=== PATIENT | male | born 1950 | race Caucasian/White ===

== ENCOUNTER 2017-05-07 11:01 | Outpatient (CLI) | payer OTHER ==
[~2017-05-07 11:01] MED LIST: ASPIRIN EC LOW81 MG PO; ATENOLOL50 MG PO; ATORVASTATIN CA40 MG PO; DIGOXIN0.125 MG PO; DILAUDID4 MG PO; FERROUS SULFAT325 M1 PO; LISINOPRIL10 MG PO; METFORMIN HCL500 MG PO; NORTRIPTYLINE H25 MG PO; NOVOLOG100 UNITS/; SULFAMETHOXAZOL1 TAB PO; VITAMIN B121000 CR PO; VITAMIN C500 M1 PO; VITAMIN D-31000 UNIT PO; VITAMIN E200 UNIT PO; WARFARIN SODIUM5 MG PO; [UNRECOGNIZED DRUG - OTHER] SC; [UNRECOGNIZED DRUG - REMARK]
--- NOTE | 2017-05-07 11:49 | DIAGNOSTIC IMAGING REPORT ---
PROCEDURE: XR FOOT 3 VIEWS - RIGHT INDICATION: HISTORY OF POST BYPASS GRAFTS BILAT TECHNIQUE: Three views. COMPARISON: None. FINDINGS: Neuropathic changes of the midfoot with pes planus. No fracture or evidence of osteomyelitis. Absent first distal phalanx with chronic erosive changes of the first proximal phalanx distally. Surgical clips are present. Extensive atherosclerosis. There is soft tissue swelling of the dorsum and plantar aspect of the foot. IMPRESSION: 1. 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 Erosive changes of the first digit 3. Extensive atherosclerosis 4. Postsurgical changes
== END 2017-05-07 23:00 ==
LOC: XR SRH 11:01
DX: E11.621 Type 2 diabetes mellitus with foot ulcer (principal); M21.41 Flat foot [pes planus] (acquired), right foot; M79.9 Soft tissue disorder, unspecified; M89.9 Disorder of bone, unspecified; I70.90 Unspecified atherosclerosis

== ENCOUNTER 2017-05-09 16:46 | Inpatient (IN) | payer OTHER ==
[~2017-05-09] VITALS: Ht 180.3 cm; Wt 115.7 kg
--- NOTE | 2017-05-09 17:53 | DIAGNOSTIC IMAGING REPORT ---
PROCEDURE: XR FOOT 3 VIEWS - RIGHT INDICATION: PAIN TECHNIQUE: Three views. COMPARISON: Right foot films 05/07/2017 FINDINGS: Neuropathic changes of the midfoot with pes planus. No fracture or evidence of osteomyelitis. Absent first distal phalanx with chronic erosive changes of the first proximal phalanx distally. Surgical clips are present. Extensive atherosclerosis. There is soft tissue swelling of the dorsum and plantar aspect of the foot. IMPRESSION: 1. 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 Erosive changes of the first digit 3. Extensive atherosclerosis 4. Postsurgical changes
--- NOTE | 2017-05-09 18:38 | DIAGNOSTIC IMAGING REPORT ---
PROCEDURE: XR CHEST 1 VIEW INDICATION: COUGH TECHNIQUE: Single view chest. 1804 hours COMPARISON: 03/16/2015 and 07/08/2014 FINDINGS: Heart size within normal limits. No significant central vascular congestion. Minor hazy widening of the superior mediastinum bilaterally, potentially vascular. The lungs are clear. No effusion or pneumothorax. Intact osseous structures with degenerative thoracic spine spurring. IMPRESSION: 1. Hazy superior mediastinal tissue widening of the mediastinal contour, possibly adipose deposition, venous vascular prominence, less likely adenopathy in etiology. Two views of the chest is recommended. 2. Discussed with Dr. Roman in the emergency room.
--- NOTE | 2017-05-09 18:43 | ED NURSING NOTES ---
Clinical Report - [facility] [address] [place] [address] 05/09/2017 16:47 [id number] Triage time 16:56. Acuity: LEVEL 3. Chief Complaint: FEVER. SEPSIS SCREEN: Sepsis Screen: positive. Infection suspected/documented. Temperature greater than 38.3 degrees C (101 degrees F), heart rate greater than 90 and respiratory rate greater than 20. RAFAL COMA SCORE: Rafal Coma Scale: 15- eyes open spontaneously (4); best verbal response- oriented x 4 (5); best motor response- obeys commands (6). --17:10 Marilee Schreiber R.N. 16:56 05/09/17. BP: 153/69. HR: 174. RR: 24. O2 saturation: 95%. Temp: 102.8 F. Pain level now: 08/10. --17:10 Marilee Schreiber R.N. Weight: 113.3 kg. Height/Length: 70 inches. BMI: 35.8. --17:08 Marilee Schreiber R.N. Medications HumuLIN 70/30 Subcutaneous, bid (75 units AM 55 units PM). --17:55 Marilee Schreiber R.N. Betamethasone Dipropionate External (Cream 0.05 %), bid. --17:55 Marilee Schreiber R.N. Triamcinolone Acetonide External (Cream 0.1 %), 2x a day. --17:56 Marilee Schreiber R.N. Meloxicam Oral (15 mg daily; new RX and he hasn't taken any yet). --17:57 Marilee Schreiber R.N. MetFORMIN HCl Oral (Tablet 1000 mg), 2x a day. --17:58 Marilee Schreiber R.N. Atorvastatin Calcium Oral dose unknown, daily. --17:58 Marilee Schreiber R.N. Tamsulosin HCl Oral 0.4 mg, daily. --17:59 Marilee Schreiber R.N. Gabapentin Oral 200 mg, 2x a day. --18:00 Marilee Schreiber R.N. Digoxin Oral 0.125 mg, daily. --18:00 Marilee Schreiber R.N. Atenolol Oral 25 mg, daily. --18:00 Marilee Schreiber R.N. Coumadin Oral (7.5 mg - M,W,F 5 mg - FAIR,TU,TH,SA). --18:01 Marilee Schreiber R.N. ASA Oral 81 mg, daily. --18:03 Marilee Schreiber R.N. Vitamins/Minerals Oral, 2x a day. --18:03 Marilee Schreiber R.N. Vitamin c Oral. Vitamin D Oral. Vitamin E Complex Oral. --18:07 Marilee Schreiber R.N. Iron Oral. --18:08 Marilee Schreiber R.N. Allergies No Known Drug Allergy. --17: Marilee Schreiber R.N. History Arrived by private vehicle. Historian: patient. Accompanied by family. Primary physician (Irasema). This started yesterday. ( had wound deep debridement on right foot, in doctor's office on Friday (Shreyas)). 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 SOCIAL HX: Former smoker. LEARNING NEEDS ASSESSMENT: The learning needs assessment revealed no barriers. FALL RISK ASSESSMENT: Fall risk assessment completed. Risk factors identified include patient impairment of mobility. Fall interventions initiated. Patient placed on stretcher. Side rails up x2. Brakes on Bed in low position. FUNCTIONAL ASSESSMENT: Functional assessment performed: requires assistance with the activities of daily living; mobility impairment present- this mobility impairment is an ongoing problem. uses a scooter. --17:10 Marilee Schreiber R.N. PROBLEMS: Hypertension. Neuropathy. A fib. Diabetes Mellitus. --17: Marilee Schreiber R.N. 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 MRSA Infection. Osteomyelitis. --17: Marilee Schreiber R.N. ADDITIONAL SURGERIES: Lt little toe amputation. Rt great toe amputation. --17:02 Marilee Schreiber R.N. Broken arm surgery. Bypass on lt leg. Cataract Surgery. --17:07 Marilee Schreiber R.N. The following entry was struck by Marilee Schreiber R.N., 17:07 <<STRICKEN ENTRY-- Broken arm surgery. --18:26 Marilee Schreiber R.N. --END STRIKE>> The following entry was struck by Marilee Schreiber R.N., 17:07 <<STRICKEN ENTRY-- Bypass on lt leg. --18:27 Marilee Schreiber R.N. --END STRIKE>>. Assessment GENERAL / NEURO / PSYCH: The patient is awake and alert, is oriented and cooperative and appears uncomfortable. He has good eye contact. RESPIRATORY: Respirations not labored. CVS: Cardiac rhythm: (tachycardia). --17:10 Marilee Schreiber R.N. Interventions ID band on patient. To treatment room. --17:10 Marilee Schreiber R.N. PHYSICAL ASSESSMENT 17:11 05/09/17. To room via wheelchair. Patient gowned. GENERAL / NEURO / PSYCH: The patient is awake and alert, appears uncomfortable and is oriented and cooperative. He appears uncomfortable and has good eye contact. RESPIRATORY: Respirations not labored. Cough (started yesterday). CVS: Cardiac rhythm: (tachycardic). SKIN: Skin is dry. Hot skin. --17:11 Marilee Schreiber R.N. NURSING PROGRESS NOTES 17:12 05/09/17. environmental monitoring technician, pulse oximeter and NIBP monitor placed on patient. Patient gowned. Head of bed elevated. Call light placed in reach. Side rails up x 2. Bed placed in lowest position. Brakes of bed on. --17:12 Marilee Schreiber R.N. 17:14 05/09/17. The patient is calm and resting quietly. GENERAL / NEURO / PSYCH: Alert. Oriented X 4. RESPIRATORY: No respiratory distress. SKIN: Skin is dry. --17:14 Marilee Schreiber R.N. 17:12 05/09/17. BP: 122/68. HR: 174. RR: 24. O2 saturation: 94% on room air. --17:14 Marilee Schreiber R.N. 17:15 05/09/2017 Site #1 started via IV in the left forearm with an 18g angiocath, with aseptic technique and good blood return; one attempt. Blood drawn: rainbow set. Labeled in the presence of the patient and sent to the lab. Saline lock flushed with 10 mL saline (by Erika FIGUEROA). --17:15 Marilee Schreiber R.N. 17:42 05/09/2017 Tylenol (Acetaminophen) PO Tablets 1000 mg given. Allergies verified and confirmed 5 rights. --17:42 Marilee Schreiber R.N. 17:44 05/09/2017 Started bag #1 1000 mL IV Fluids IV NS (Saline); bolus of 500 mL over 30 minute(s) then at 10 mL/hr over 4 minute(s) via site #1 via IV pump. (bolus infusing @ 999 ml/hr). --17:44 Marilee Schreiber R.N. 17:44 05/09/2017 Metoprolol (Metoprolol Tartrate) IVP 5 mg given over 5 minute(s) via site #1. Allergies verified and confirmed 5 rights. IV patency established. IV site checked: no pain, redness, or swelling. IV flushed thoroughly pre- and post-medication administration. IVP given by RN. --17:44 Marilee Schreiber R.N. 17:29. Point of care testing: performed by nurse. Glucose: 261. --17:47 Marilee Schreiber R.N. 18:10 05/09/17. BP: 120/75. HR: 169. RR: 25. O2 saturation: 93% on room air. --18:11 Marilee Schreiber R.N. 18:11 05/09/17. Reassessment after fluids administered and medication administered. He is calm and resting quietly. Overall patient status is the same- he states feels the same. GENERAL / NEURO / PSYCH: Alert. Oriented X 4. RESPIRATORY: No respiratory distress. SKIN: Skin is dry. --18:11 Marilee Schreiber R.N. 18:12 05/09/17. Temp: 101.4 F (oral). --18:12 Marilee Schreiber R.N. 18:20 05/09/2017 Started 2 gm of Vancomycin IVPB in bag #1 500 mL; at 270 mL/hr over 2 hour(s) via site #1 via IV pump. Allergies verified and confirmed 5 rights. IV patency established. IV site checked: no pain, redness, or swelling. IV flushed thoroughly pre- and post-medication administration. --18:21 Marilee Schreiber R.N. 19:24 05/09/2017 Site #2 started via IV in the right hand with an 20g angiocath, with aseptic technique and good blood return; one attempt. Saline lock flushed with 10 mL saline. --19:24 Marilee Schreiber R.N. Cardiac rhythm: sinus tachycardia. Reassessment after fluids administered. He is calm. Overall patient status is improved- he states feels better. GENERAL / NEURO / PSYCH: Alert. Oriented X 4. RESPIRATORY: No respiratory distress. Breath sounds normal. SKIN: Skin is warm. --19:46 Carlyle Solorio R.N. 19:41 05/09/17. BP: 105/50. HR: 157. RR: 24. O2 saturation: 95% on nasal cannula at 2 liters/minute. O2 started via nasal cannula at 2 liters/minute. Temp: 98.1 F. Pain level now: 03/10. --19:46 Carlyle Solorio R.N. 19:54 05/09/17. BP: 103/43. HR: 174. RR: 24. O2 saturation: 99% on nasal cannula at 2 liters/minute. O2 started via nasal cannula at 2 liters/minute. --19:59 Carlyle Solorio R.N. The patient is calm and resting quietly. ( Dr. Roman made aware that pts systolic BP is in low 100's with MAP of 60. clarified order of Diltiazem bolus and infusion prior to starting. Ordered to start with Diltiazem 5mg/hr infusion and hold off Diltiazem bolus.). GENERAL / NEURO / PSYCH: Alert. Oriented X 4. RESPIRATORY: No respiratory distress. --19:59 Carlyle Solorio R.N. 20:00 05/09/2017 Started 5 mg of Diltiazem Drip IV in bag #1 125 mL; at 5 mg/hr via site #2 via IV pump. Allergies verified and confirmed 5 rights. IV patency established. IV site checked: no pain, redness, or swelling. IV flushed thoroughly pre- and post-medication administration. --20:01 Carlyle Solorio R.N. Cardiac rhythm: sinus tachycardia. Reassessment after medication administered. He is calm and resting quietly. Overall patient status is improved- he states feels better. ( Patient tolerating the Diltiazem 5mg/hr infusion while maintaining MAP >50, patient has no CP or SOB.). GENERAL / NEURO / PSYCH: Alert. Oriented X 4. RESPIRATORY: No respiratory distress. Breath sounds normal. SKIN: Skin is warm and dry. --20:33 Carlyle Solorio R.N. 20:30 05/09/17. BP: 97/42. HR: 136. RR: 25. O2 saturation: 98% on nasal cannula at 2 liters/minute. Temp: 100.1 F (oral). --20:33 Carlyle Solorio R.N. ( Applied non-adherent dressing on the wound on patient's right foot.). --20:42 Carlyle Solorio R.N. ( Phone report given to Pari FIGUEROA ([facility]) for transfer of care.). --20:51 Carlyle Solorio R.N. DISPOSITION / DISCHARGE Cardiac rhythm: sinus tachycardia. Condition at departure: stable. Admitted to the Critical Care Unit. Report was given to a nurse via a phone call. Report included patient's care, treatment, medications, reviewed medication reconcilliation, and condition (including any recent changes or anticipated changes). All questions were answered. Report was acknowledged and care was transferred. (Pari FIGUEROA). Patient's personal items include: shirt, undergarments, pajamas and shoes; items were placed in belongings bag, given to the spouse and transported with the patient. --21:00 Carlyle Solorio R.N. 20:58 05/09/17. BP: 104/75. HR: 138. RR: 20. O2 saturation: 98% on nasal cannula at 2 liters/minute. Temp: 100.1 F (oral). Pain level now: 03/10. --21:00 Carlyle Solorio R.N. Departure time: 21:09. --21:09 Carlyle Solorio R.N. Locked/Released at 05/09/2017 21:09 by Carlyle Solorio R.N.
--- NOTE | 2017-05-09 18:43 | ED ORDER SUMMARY ---
..... Patient: JEWEL DUNCAN OrderSheet [facility] VisitID: [id number] [address] [place] [address] 66y, M Registration Date/Time: 05/09/2017 ORDER SHEET Weight: 113.3 kg Allergies: No Known Drug Allergy GENERAL ORDERS: Blood Culture (No) (N/A) Urgent (17:06 05/09/2017 EKoroleva P.A.-C) (Ack 17:14 KHoerner) (17:15 Lv R.N.) CBC w Diff Urgent (17:07 05/09/2017 EKoroleva P.A.-C) (Ack 17:14 KHoerner) (17:15 Lv R.N.) CMP Urgent (17:05/09/2017 EKoroleva P.A.-C) (Ack 17:14 KHoerner) (17:15 Lv R.N.) PCT (Procalcitonin) Urgent (17:07 05/09/2017 EKoroleva P.A.-C) (Ack 17:14 KHoerner) (17:15 Lv R.N.) Lactate, Serum Urgent (17:07 05/09/2017 EKoroleva P.A.-C) (Ack 17:14 KHoerner) (17:15 Lv R.N.) PT with INR Urgent (17:07 05/09/2017 EKoroleva P.A.-C) (Ack 17:14 KHoerner) (17:15 Lv R.N.) PTT Urgent (17:07 05/09/2017 EKoroleva P.A.-C) (Ack 17:14 KHoerner) (17:15 Lv R.N.) POC Glucose (17:08 05/09/2017 EKoroleva P.A.-C) (17:45 Lv R.N.) Foot 3V Right Urgent (17:17 05/09/2017 EKoroleva P.A.-C) (Ack 17:40 KHoerner) (17:45 Lv R.N.) Brain Surgeon (Continuous) (17:31 05/09/2017 EKoroleva P.A.-C) (17:45 Lv R.N.) Culture, Wound Surface (Foot) (foot infection ) Urgent (17:38 05/09/2017 [facility]) (Ack 17:41 KHoerner) (17:45 Lv R.N.) Culture, Wound Deep (Foot) (foot infection ) Urgent (17:39 05/09/2017 [facility]) (Ack 17:41 KHoerner) (18:19 Lv R.N.) Chest 1V Urgent (17:54 05/09/2017 [facility]) (Ack 18:06 KHoerner) (18:40 KHoerner) Chest 2V Urgent (18:37 05/09/2017 [facility]) (Ack 18:38 KHoerner) (18:40 KHoerner) MEDICATION ORDERS: Tylenol PO 1,000 mg (NOW) (17:06 05/09/2017 EKoroleva P.A.-C) (Ack 17:15 Lv R.N.) (17:42 Lv R.N.) IV FLUIDS: IV NS : initial bolus 500 mL (1000 mL/hr), then 10 mL/hr for X1 (NOW); Vincent (17:06 05/09/2017 EKoroleva P.A.-C) (Ack 17:15 Lv R.N.) (17:44 Lv R.N.) IV Saline Lock (17:07 05/09/2017 EKoroleva P.A.-C) (Ack 17:15 Lv R.N.) (17:41 Lv R.N.) Metoprolol IV 5 mg (HIGH ALERT MEDICATION, NOW) (17:08 05/09/2017 EKoroleva P.A.-C) (Ack 17:15 Lv R.N.) (17:44 Lv R.N.) Vancomycin IV 2 gm/500 mL (NOW) (17:40 05/09/2017 [facility]) (Ack 17:45 Lv R.N.) (18:21 Lv R.N.) Diltiazem Drip IV : initial bolus 10 mg, then 5 mg/hr (NOW, TITRATE) (18:23 05/09/2017 Jorg[facility] MENDEZ) (Ack 19:17 Lv Monet) (20:01 Ela Monet) ORDER SHEET NOTES: [Electronically signed by Carlyle Solorio R.N. (21:05/09/2017)] [Electronically signed by Jonny Roman DO (21:16 05/09/2017)] [Electronically locked/signed by Carlyle Solorio R.N. (21:05/09/2017)]
--- NOTE | 2017-05-09 18:43 | ED CLINICAL REPORT ---
Clinical Report - Physicians/Mid Levels [facility] [address] [place] [address] 05/09/2017 16:47 Patient: JEWEL DUNCAN Time Seen: 17:12 May 09 2017. Arrived- By private vehicle. Historian- patient. HISTORY OF PRESENT ILLNESS Chief Complaint: SKIN RASH and (FEVER). This started yesterday and is still present. It was gradual in onset and has been waxing/waning. It is described as painful. It has been located on the right lower extremity. No rash to face. A possible cause has been identified. (Patient reports history of osteomyelitis, history of MRSA, with debridement of the right foot [address] Pritchett, on 07 May). Similar symptoms previously: Recent medical care: The patient was seen recently in a clinic. REVIEW OF SYSTEMS The patient has had fever. No chills, sore throat, hoarseness, headache or eye irritation. No chest pain, abdominal pain, nausea, diarrhea or difficulty with urination. No vomiting. The patient has had a moderate nonproductive cough. No blood tinged sputum or frankly bloody sputum. It has been similar to previous symptoms. All systems otherwise negative, except as recorded above. PAST HISTORY PCP: [facility]ry: Dr Pritchett PROBLEMS: Hypertension. Neuropathy. A fib. Diabetes Mellitus. 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 MRSA Infection. Osteomyelitis. ADDITIONAL SURGERIES: Lt little toe amputation. Rt great toe amputation. --17:02 Marilee Schreiber R.N. Broken arm surgery. Bypass on lt leg. Cataract Surgery. Chronic atrial fibrillation. Medications: Iron Oral. Vitamin c Oral. Vitamin D Oral. Vitamin E Complex Oral. Vitamins/Minerals Oral, 2x a day. ASA Oral 81 mg, daily. Coumadin Oral (7.5 mg - M,W,F 5 mg - FAIR,,,SA). Atenolol Oral 25 mg, daily. Digoxin Oral 0.125 mg, daily. Gabapentin Oral 200 mg, 2x a day. Tamsulosin HCl Oral 0.4 mg, daily. Atorvastatin Calcium Oral dose unknown, daily. MetFORMIN HCl Oral (Tablet 1000 mg), 2x a day. Meloxicam Oral (15 mg daily; new RX and he hasn't taken any yet). Triamcinolone Acetonide External (Cream 0.1 %), 2x a day. Betamethasone Dipropionate External (Cream 0.05 %), bid. HumuLIN 70/30 Subcutaneous, bid (75 units AM 55 units PM). Allergies: No Known Drug Allergy. SOCIAL HISTORY Former smoker. No alcohol use or drug use. ADDITIONAL NOTES The nursing notes have been reviewed. PHYSICAL EXAM Vital Signs: 05/09/2017 16:56 BP: 153/69. HR: 174. RR: 24. O2 saturation: 95%. Temp: 102.8 F. Pain level now: 08/10. Appearance: Alert. Oriented X3. Patient in mild distress. Eyes: Conjunctivae and eyelids normal. ENT: Nose normal. Pharynx normal. Neck: Neck supple. CVS: Tachycardia. Abnormal rhythm, which is irregularly irregular. Respiratory: No respiratory distress. Breath sounds normal. Abdomen: Nontender. No organomegaly. Skin: Skin warm and dry. Cellulitis. Extremities: Right foot: moderate erythema, tenderness and swelling located in the proximal and distal aspect of the mid foot. (surgical site with packing in place - when removed there is moderate pus discharge; there is a large vesicle on the distal foot at the MTP crease area). Neuro: Oriented X 3. No motor deficit. Sensory deficit present. (foot). Altered sensation to light touch on the right leg. LABS, X-RAYS, AND EKG Rt Foot X-ray: (IMPRESSION: 1. 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 Erosive changes of the first digit 3. Extensive atherosclerosis 4. Postsurgical changes). Views: AP, lateral and oblique. Technique: good. The X-rays were interpreted contemporaneously by me. Laboratory Tests: CBC w Diff: (ASAD: 05/09/2017 17:15) ( MsgRcvd 05/09/2017 17:47) Final results Test Result Flag Units (Reference) WHITE BLOOD COUNT 14.6 H K/uL (4.5-11.5) RED BLOOD COUNT 3.88 L M/uL (4.50-5.90) HEMOGLOBIN 11.2 L gm/dL (13.5-17.5) HEMATOCRIT 32.9 L % (41.0-53.0) MEAN CELL VOLUME 85 fL (80-100) MEAN CORPUSCULAR HGB 29 pg (26-34) MEAN CORPUSCULAR HGB CONC 34 g/dL (31-37) RED CELL DISTRIBUTION WIDTH 14.3 % (11.6-14.8) PLATELET COUNT 238 K/uL (150-400) NEUTROPHIL % 79.7 H % (50-75) LYMPH % 7.4 L % (25-40) MONO % 12.9 % (3-14) EOSINOPHIL % 0 % (0-4) BASOPHIL % 0 % (0-2) PT with INR: (ASAD: 05/09/2017 17:15) ( [facility] 05/09/2017 17:53) Final results Test Result Flag Units (Reference) INR 2.5 H (0.8-1.2) Low Intensity Therapy: INR 1.5-2.0 PT range 18.5-23.1Mod.Intensity Therapy: INR 2.0-3.0 PT range 23.1-31.5High Intensity Therapy: INR 2.5-3.5 PT range 27.4-35.5High Intensity Therapy 2: INR 3.0-4.0 PT range 31.5-39.3 APTT 67 H SECONDS (24-34) Troponin-I: (ASAD: 05/09/2017 19:35) ( [facility] 05/09/2017 20:19) Final results Test Result Flag Units (Reference) TROPONIN I <0.05 ng/mL (0.00-1.5) TROPONIN REFERENCE RANGE:<0.1 NEGATIVE0.1-1.5 INDETERMINANT>1.5 POSITIVE Lactate, Serum: (ASAD: 05/09/2017 17:15) ( [facility] 05/09/2017 18:01) Final results Test Result Flag Units (Reference) LACTIC ACID 1.7 mmol/L (0.4-2.0) [id number]: (ASAD: 05/09/2017 17:15) ( MsgRcvd 05/09/2017 18:19) Final results Test Result Flag Units (Reference) PROCALCITONIN <0.5 ng/mL (0-0.5) PCT Concentration: Interpretation : Risk/option for action PCT <=0.5 ng/mL : Systemic : Low risk forinfection(sepsis): progression to severeis not likely. : systemic infection.Local bacterial : CAUTION-PCT levelsinfection is : below 0.5 ng/mL do notpossible. : exclude an infection,because localizedinfections (withoutsystemic signs) may beassociated with suchlow levels. If PCT ismeasured very earlyafter a bacterialchallenge (usually <6hours), these valuesmay still be low. Inthis case PCT shouldbe re-assessed 6-24hours later. PCT >0.5 and : Systemic infection: Moderate risk for<= 2 ng/mL : (sepsis) is : progression to severepossible, but : systemic infection.other conditions : The patient should beare known to : closely monitoredelevate PCT. : both clinically andby re-assessing PCTwithin 6-24 hours. PCT > 2 ng/mL : Systemic infection: High risk for(sepsis) is likely: progression to severeunless other : systemic infection.causes are known. : PCT >= 10 ng/mL : Important systemic: High likelihood ofinflammatory : severe sepsis orresponse, almost : septic shock.exclusively due to:severe bacterial :sepsis or septic :shock. : CMP: (ASAD: 05/09/2017 17:15) ( [facility] [place] 05/09/2017 18:07) Final results Test Result Flag Units (Reference) GLUCOSE 288 H mg/dL (70-110) BUN 20 H mg/dL (7-18) CREATININE 1.3 mg/dL (0.6-1.3) Estimated GFR 58.35 mL/min Estimated GFR- >60 mL/min Note: Persistent reduction over 3 months in eGFR<60 mL/min/1.73 m2 defines CKD. Patients with eGFR values>=60 mL/min/1.73 m2 may also have CKD if evidence ofpersistent proteinuria. Additional information may be foundat www.kidney.org. SODIUM 137 mmol/L (136-145) POTASSIUM 4.4 mmol/L (3.5-5.1) CHLORIDE 101 mmol/L (98-107) CARBON DIOXIDE 26 mmol/L (21-32) CALCIUM 9.4 mg/dL (8.5-10.1) TOTAL PROTEIN 7.8 g/dL (6.4-8.2) ALBUMIN 2.7 L g/dL (3.3-5.0) BILIRUBIN, TOTAL 1.1 H mg/dL (0.0-1.0) ALKALINE PHOSPHATASE 86 U/L (46-116) AST (SGOT) 15 U/L (15-37) ALT (SGPT) 21 U/L (12-78) Culture, Wound Deep: (ASAD: 05/09/2017 17:35) ( [facility] [place]/09[place] 21:03) IP SPECIMEN DESCRIPTION: FOOT INFECTION Test Result Flag Units (Reference) GRAM STAIN, WOUND, DEEP EPITHELIAL CELLS: RARE GRAM POSITIVE COCCI: MANY WHITE BLOOD CELLS: MANY POLY . Microbiology: Wound culture ordered. (from 05/07/2017: +staph aureus - sensitivities pending). Pulse Oximetry: 05/09/2017 16:56 O2 saturation: 95%. (FIO2 - room air). Interpretation: normal. PROGRESS AND PROCEDURES Course of Care: Normal Saline 1 liter IVPB given. Tylenol 1000 mg PO given. Vancomycin 2 grams IVPB given. Zofran 4 mg IVP given. Metoprolol 5 mg IVP given. Diltiazem IV drip given. Pt initially seen by JIGAR Lambert. VS noted to be significantly abnormal and care transferred myself 05/09/2017 18:12 Temp: 101.4 F. 05/09/2017 18:10 BP: 120/75. HR: 169. RR: 25. O2 saturation: 93%. Critical care performed (70 minutes). Time is exclusive of separately billable procedures. Time includes: direct patient care, patient reassessment, coordination of patient care, interpretation of data (laboratory data, pulse oximetry and chest xrays), review of patient's medical records, medical consultation, family consultation regarding treatment decisions and documentation of patient care. Procedures excluded from critical care time: electrocardiography. Discussed case with health care provider (Shreyas call placed 18:03 call returned 18:04). Reviewed test results. Agreed upon treatment plan. Refers case to other health care provider. Discussed case with hospitalist, (Ruddy). Reviewed test results. Agreed upon treatment plan. Health care provider will see patient in ED. Patient/family counseled. Old ED and inpatient records reviewed. Transition orders written. Disposition: Admitted to the Critical Care Unit. Condition: guarded. CLINICAL IMPRESSION Chronic atrial fibrillation. The patient has one or more high risk factors and/or two or more moderate risk factors for thromboembolism. The patient is prescribed warfarin or another FDA approved anticoagulant. Cellulitis of the right foot. Abscess to the right foot (with recent incision and drainage). (Electronically signed by Jonny Roman DO 05/09/2017 21:16)
--- NOTE | 2017-05-09 18:43 | ED ORDER SUMMARY ---
..... Patient: JEWEL DUNCAN OrderSheet [facility] VisitID: [id number] [address] [place] [address] 66y, M Registration Date/Time: 05/09/2017 ORDER SHEET Weight: 113.3 kg Allergies: No Known Drug Allergy GENERAL ORDERS: Blood Culture (No) (N/A) Urgent (17:06 05/09/2017 EKoroleva P.A.-C) (Ack 17:14 KHoerner) (17:15 Lv R.N.) CBC w Diff Urgent (17:07 05/09/2017 EKoroleva P.A.-C) (Ack 17:14 KHoerner) (17:15 Lv R.N.) CMP Urgent (17:05/09/2017 EKoroleva P.A.-C) (Ack 17:14 KHoerner) (17:15 Lv R.N.) PCT (Procalcitonin) Urgent (17:07 05/09/2017 EKoroleva P.A.-C) (Ack 17:14 KHoerner) (17:15 Lv R.N.) Lactate, Serum Urgent (17:07 05/09/2017 EKoroleva P.A.-C) (Ack 17:14 KHoerner) (17:15 Lv R.N.) PT with INR Urgent (17:07 05/09/2017 EKoroleva P.A.-C) (Ack 17:14 KHoerner) (17:15 Lv R.N.) PTT Urgent (17:07 05/09/2017 EKoroleva P.A.-C) (Ack 17:14 KHoerner) (17:15 Lv R.N.) POC Glucose (17:08 05/09/2017 EKoroleva P.A.-C) (17:45 Lv R.N.) Foot 3V Right Urgent (17:17 05/09/2017 EKoroleva P.A.-C) (Ack 17:40 KHoerner) (17:45 Lv R.N.) Examination Proctor (Continuous) (17:31 05/09/2017 EKoroleva P.A.-C) (17:45 Lv R.N.) Culture, Wound Surface (Foot) (foot infection ) Urgent (17:38 05/09/2017 [facility]) (Ack 17:41 KHoerner) (17:45 Lv R.N.) Culture, Wound Deep (Foot) (foot infection ) Urgent (17:39 05/09/2017 [facility]) (Ack 17:41 KHoerner) (18:19 Lv R.N.) Chest 1V Urgent (17:54 05/09/2017 [facility]) (Ack 18:06 KHoerner) (18:40 KHoerner) Chest 2V Urgent (18:37 05/09/2017 [facility]) (Ack 18:38 KHoerner) (18:40 KHoerner) MEDICATION ORDERS: Tylenol PO 1,000 mg (NOW) (17:06 05/09/2017 EKoroleva P.A.-C) (Ack 17:15 Lv R.N.) (17:42 Lv R.N.) IV FLUIDS: IV NS : initial bolus 500 mL (1000 mL/hr), then 10 mL/hr for X1 (NOW); Vincent (17:06 05/09/2017 EKoroleva P.A.-C) (Ack 17:15 Lv R.N.) (17:44 Lv R.N.) IV Saline Lock (17:07 05/09/2017 EKoroleva P.A.-C) (Ack 17:15 Lv R.N.) (17:41 Lv R.N.) Metoprolol IV 5 mg (HIGH ALERT MEDICATION, NOW) (17:08 05/09/2017 EKoroleva P.A.-C) (Ack 17:15 Lv R.N.) (17:44 Lv R.N.) Vancomycin IV 2 gm/500 mL (NOW) (17:40 05/09/2017 [facility]) (Ack 17:45 Lv R.N.) (18:21 Lv R.N.) Diltiazem Drip IV : initial bolus 10 mg, then 5 mg/hr (NOW, TITRATE) (18:23 05/09/2017 Jorgito MENDEZ) (Ack 19:17 Lv Monet) (20:01 Ela Monet) ORDER SHEET NOTES: [Electronically signed by Carlyle Solorio R.N. (21:05/09/2017)] [Electronically signed by Jonny Roman DO (21:16 05/09/2017)] [Electronically locked/signed by Carlyle Solorio R.N. (21:05/09/2017)]
--- NOTE | 2017-05-09 20:17 | HISTORY AND PHYSICAL ---
ADMITTED: 05/09/2017 CHIEF COMPLAINT: 1. Fever HISTORY OF PRESENT ILLNESS: This is a 66-year-old white male who developed a fever that started last night and today went up to 102 with chills. The source actually is blister that happened 2 weeks ago in the right foot. The patient saw his process improvement specialist and was put on cephalexin and had debridement done, but the pain, swelling, and redness increased along with the secretions and worsened. The patient had to come to the emergency department. MEDICAL/SURGICAL HISTORY: Past medical history: Remarkable for diabetes mellitus , atrial fibrillation, and peripheral artery disease. Surgical history: Remarkable for foot surgery with multiple toe amputations, arm surgery, and bypass for PAD. Hospitalizations: The last one was 2 years ago for the left foot ulceration. MEDICATIONS: The patient takes: 1. Humulin 70/30, 75 units in the morning and 55 units in the evening. 2. Meclizine 25 mg every 6 hours as needed. 3. Also cephalexin the patient was taking. 4. Meloxicam 15 mg daily. ALLERGIES: 1. THERE ARE NO KNOWN DRUG ALLERGIES. SOCIAL HISTORY: The patient is and has 2 kids, lives with his . No history of smoking, alcohol, or drug abuse. FAMILY HISTORY: Remarkable for coronary artery disease, stroke, and diabetes mellitus. REVIEW OF SYSTEMS: No weight changes. No difficulty with vision or hearing. No runny nose, congestion, or sore throat, but cough for 4 days. No chest pain. No palpitations. No shortness of breath. Some nausea, but no vomiting. No indigestion. No abdominal pain. Normal regular bowel movements. No dysuria, frequency, or incontinence that is unusual and pain in the hips. No headaches. No dizziness. No tingling, no numbness. No localized weakness. No syncope. PHYSICAL EXAMINATION: VITAL SIGNS: The patient had a fever of 102. Pulse oximetry is 95% in room air. GENERAL APPEARANCE: Well developed and nourished, good body build, no acute distress. HEENT: Ears: Normal tympanic membranes. Mouth: Normal hypopharynx, no exudation, no erythema. NECK: Supple. No JVD. No carotid bruit. No palpable mass. SKIN: Warm and dry with good turgor. LUNGS: Clear to auscultation. No rhonchi or wheezing or crackles. HEART: Regular S1 and S2. No murmur. No S3 was heard. ABDOMEN: Soft, nontender. Bowel sounds are positive. EXTREMITIES: The patient has multiple toe amputations on both feet. Also had a deep ulceration in the right sole of the right foot with significant drainage and secretion. NEUROLOGIC: Alert and oriented x3. Cranial nerves are grossly intact. No motor deficits. Pupils are equal, round, and reactive to light. Extraocular movements are intact. No nystagmus. No cerebellar signs. Deep tendon reflexes are bilateral and symmetric. LAB/IMAGING: White blood count is 14.6, hemoglobin is 11.2, hematocrit is 32.9, and platelet count is 238. INR is 2.5, PTT is 67. Lactic acid is 1.7, glucose is 288 , BUN is 20, creatinine is 1.3, sodium 137, potassium 4.4, chloride is 101, CO2 is 26, calcium is 9.4. Liver enzymes unremarkable. The patient's heart rate is from 110 up to 170 in atrial fibrillation. IMPRESSION: 1. Infected ulceration of the right foot. 2. Atrial fibrillation with rapid ventricular response. 3. Diabetes mellitus. 4. Peripheral arterial disease. PLAN: The patient will be admitted to CCU and was started on vancomycin IV and Zosyn IV. The patient will be on also diltiazem drip IV to control the atrial fibrillation. Dr. Pritchett has been consulted through the emergency department and is aware of the patient, and he will see the patient in the hospital. The patient has a history of osteomyelitis and methicillin-resistant Staphylococcus aureus. Also will continue monitoring blood sugar. The patient will be on aspirin and insulin and insulin sliding scale.
--- NOTE | 2017-05-09 21:16 | ED DISCHARGE INSTRUCTIONS ---
Patient: JEWEL DUNCAN General Instructions [facility] VisitID: [id number] [address] [place] [address] 66y, M Registration Date/Time: 05/09/2017 Chronic atrial fibrillation. The patient has one or more high risk factors and/or two or more moderate risk factors for thromboembolism. The patient is prescribed warfarin or another FDA approved anticoagulant. Cellulitis of the right foot. Abscess to the right foot (with recent incision and drainage). (Electronically signed by Jonny Roman DO 05/09/2017 21:16)
--- NOTE | 2017-05-09 21:16 | ED DISCHARGE INSTRUCTIONS ---
Patient: JEWEL DUNCAN General Instructions [facility] VisitID: [id number] [address] [place] [place] [address] 66y, M Registration Date/Time: 05/09/2017 Chronic atrial fibrillation. The patient has one or more high risk factors and/or two or more moderate risk factors for thromboembolism. The patient is prescribed warfarin or another FDA approved anticoagulant. Cellulitis of the right foot. Abscess to the right foot (with recent incision and drainage). (Electronically signed by Jonny Roman DO 05/09/2017 21:16)
--- NOTE | 2017-05-09 21:17 | ED MAR SUMMARY ---
..... Medication Administration Record [facility] [address] [place] [address] Patient: JEWEL DUNCAN Visit ID: [id number] 66y, M Weight: 113.3 kg Height/Length: 70 in BMI: 35.8 ALLERGIES: No Known Drug Allergy Given 17:42 05/09/2017 Marilee Schreiber R.N. Medication Administered: TYLENOL [PO] (ACETAMINOPHEN), Dose: 1000 mg Tablets PO. Medication Ordered: Tylenol PO 1,000 mg (NOW). Start 17:44 05/09/2017 Marilee Schreiber R.N. Medication Administered: IV NS (SALINE), Dose: IV Fluids over 4 minute(s), Rate: 10 mL/hr, Bolus: 500 mL over 30 minute(s), Dispensed: 1000 mL bag, Site: #1 left forearm. Medication Ordered: IV NS : initial bolus 500 mL (1000 mL/hr), then 10 mL/hr for X1 (NOW); Vincent. Given 17:44 05/09/2017 Marilee Schreiber R.N. Medication Administered: METOPROLOL [IVP] (METOPROLOL TARTRATE), Dose: 5 mg IVP over 5 minute(s), Site: #1 left forearm. Medication Ordered: Metoprolol IV 5 mg (HIGH ALERT MEDICATION, NOW). Start 18:20 05/09/2017 Marilee Schreiber R.N. Medication Administered: VANCOMYCIN [IVPB], Dose: 2 gm IVPB over 2 hour(s), Rate: 270 mL/hr, Dispensed: 500 mL bag, Site: #1 left forearm. Medication Ordered: Vancomycin IV 2 gm/500 mL (NOW). Start 20:00 05/09/2017 Carlyle Solorio R.N. Medication Administered: DILTIAZEM [IV DRIP], Dose: 5 mg Drip IV, Rate: 5 mg/hr, Dispensed: 125 mL bag, Site: #2 right hand. Medication Ordered: Diltiazem Drip IV : initial bolus 10 mg, then 5 mg/hr (NOW, TITRATE).
--- NOTE | 2017-05-09 21:17 | ED MED RECONCILIATION SUMMARY ---
Patient: JEWEL DUNCAN Medication Reconciliation Report [facility] VisitID: [id number] [address] [place] [address] 66y, M Registration Date/Time: 05/09/2017 Weight: 113.3 kg Height/Length: 70 in. BMI: 35.8 ALLERGIES: No Known Drug Allergy The patient's Home Medications are listed below: THE FOLLOWING MEDICATIONS NEED TO BE RECONCILED: ASA Oral 81 mg, daily Atenolol Oral 25 mg, daily Atorvastatin Calcium Oral dose unknown, daily Betamethasone Dipropionate External (0.05 %), bid Coumadin Oral, 7.5 mg - ,W,F5 mg - ,,,SA Digoxin Oral 0.125 mg, daily Gabapentin Oral 200 mg, 2x a day HumuLIN 70/30 Subcutaneous, bid, 75 units AM55 units PM Iron Oral Meloxicam Oral, 15 mg daily; new RX and he hasn't taken any yet MetFORMIN HCl Oral (1000 mg), 2x a day Tamsulosin HCl Oral 0.4 mg, daily Triamcinolone Acetonide External (0.1 %), 2x a day Vitamin c Oral Vitamin D Oral Vitamin E Complex Oral Vitamins/Minerals Oral, 2x a day The source(s) of the original Home Medication information: Not obtained. The following Medications were given to the patient in the Emergency Department: Tylenol [PO] PO 1000 mg, administered: 05/09/2017 5:42:00 PM IV NS IV Fluids bolus 500 mL over 30 minute(s), then 10 mL/hr, administered: 05/09/2017 5:44:00 PM Metoprolol [IVP] IVP 5 mg, administered: 05/09/2017 5:44:00 PM Vancomycin [IVPB] IVPB bolus 0, then 2 gm 270 mL/hr, administered: 05/09/2017 6:20:00 PM Diltiazem [IV Drip] Drip IV bolus 0, then 5 mg 5 mg/hr, administered: 05/09/2017 8:00:00 PM The following Medications were prescribed to the patient: None.
--- NOTE | 2017-05-09 21:17 | ED MED RECONCILIATION SUMMARY ---
Patient: JEWEL DUNCAN Medication Reconciliation Report [facility] VisitID: [id number] [address] [place] [address] 66y, M Registration Date/Time: 05/09/2017 Weight: 113.3 kg Height/Length: 70 in. BMI: 35.8 ALLERGIES: No Known Drug Allergy The patient's Home Medications are listed below: THE FOLLOWING MEDICATIONS NEED TO BE RECONCILED: ASA Oral 81 mg, daily Atenolol Oral 25 mg, daily Atorvastatin Calcium Oral dose unknown, daily Betamethasone Dipropionate External (0.05 %), bid Coumadin Oral, 7.5 mg - ,W,F5 mg - ,,,SA Digoxin Oral 0.125 mg, daily Gabapentin Oral 200 mg, 2x a day HumuLIN 70/30 Subcutaneous, bid, 75 units AM55 units PM Iron Oral Meloxicam Oral, 15 mg daily; new RX and he hasn't taken any yet MetFORMIN HCl Oral (1000 mg), 2x a day Tamsulosin HCl Oral 0.4 mg, daily Triamcinolone Acetonide External (0.1 %), 2x a day Vitamin c Oral Vitamin D Oral Vitamin E Complex Oral Vitamins/Minerals Oral, 2x a day The source(s) of the original Home Medication information: Not obtained. The following Medications were given to the patient in the Emergency Department: Tylenol [PO] PO 1000 mg, administered: 05/09/2017 5:42:00 PM IV NS IV Fluids bolus 500 mL over 30 minute(s), then 10 mL/hr, administered: 05/09/2017 5:44:00 PM Metoprolol [IVP] IVP 5 mg, administered: 05/09/2017 5:44:00 PM Vancomycin [IVPB] IVPB bolus 0, then 2 gm 270 mL/hr, administered: 05/09/2017 6:20:00 PM Diltiazem [IV Drip] Drip IV bolus 0, then 5 mg 5 mg/hr, administered: 05/09/2017 8:00:00 PM The following Medications were prescribed to the patient: None.
--- NOTE | 2017-05-09 21:17 | ED MAR SUMMARY ---
..... Medication Administration Record [facility] [address] [place] [address] Patient: JEWEL DUNCAN Visit ID: [id number] 66y, M Weight: 113.3 kg Height/Length: 70 in BMI: 35.8 ALLERGIES: No Known Drug Allergy Given 17:42 05/09/2017 Marilee Schreiber R.N. Medication Administered: TYLENOL [PO] (ACETAMINOPHEN), Dose: 1000 mg Tablets PO. Medication Ordered: Tylenol PO 1,000 mg (NOW). Start 17:44 05/09/2017 Marilee Schreiber R.N. Medication Administered: IV NS (SALINE), Dose: IV Fluids over 4 minute(s), Rate: 10 mL/hr, Bolus: 500 mL over 30 minute(s), Dispensed: 1000 mL bag, Site: #1 left forearm. Medication Ordered: IV NS : initial bolus 500 mL (1000 mL/hr), then 10 mL/hr for X1 (NOW); Vincent. Given 17:44 05/09/2017 Marilee Schreiber R.N. Medication Administered: METOPROLOL [IVP] (METOPROLOL TARTRATE), Dose: 5 mg IVP over 5 minute(s), Site: #1 left forearm. Medication Ordered: Metoprolol IV 5 mg (HIGH ALERT MEDICATION, NOW). Start 18:20 05/09/2017 Marilee Schreiber R.N. Medication Administered: VANCOMYCIN [IVPB], Dose: 2 gm IVPB over 2 hour(s), Rate: 270 mL/hr, Dispensed: 500 mL bag, Site: #1 left forearm. Medication Ordered: Vancomycin IV 2 gm/500 mL (NOW). Start 20:00 05/09/2017 Carlyle Solorio R.N. Medication Administered: DILTIAZEM [IV DRIP], Dose: 5 mg Drip IV, Rate: 5 mg/hr, Dispensed: 125 mL bag, Site: #2 right hand. Medication Ordered: Diltiazem Drip IV : initial bolus 10 mg, then 5 mg/hr (NOW, TITRATE).
[2017-05-09 21:32] VITALS: BP 117/38
[2017-05-09 22:11] VITALS: BP 107/57
[2017-05-09] MEDS ORDERED: FLOMAX0.4 MG PO (22:16)
[2017-05-09] MEDS ORDERED: GABAPENTIN100 MG PO (22:17)
[2017-05-09] MEDS ORDERED: TRIAMCINOLONE A0.11 TOP (22:19)
--- NOTE | 2017-05-09 22:20 | Progress Note ---
Subjective General ADVANCED CARE PLAN History of Present Illness This is a 66-year-old white male who developed a fever that started last night and today went up to 102 with chills. The source actually is blister that happened 2 weeks ago in the right foot. The patient saw his forepart rasper and was put on cephalexin and had debridement done, but the pain, swelling, and redness increased along with the secretions and worsened. The patient had to come to the emergency department. A discussion was undertaken with the patient regarding previous advance care arrangements/decisions. The following advanced directives were noted by the patient and discussed with me at the time of admission. ADVANCED DIRECTIVES: 1. Living well: No 2. POLST: No 3. CODE STATUS: Full Code 4. [facility] No 5. Donor card: No The patient has expressed interest in pursuing full resuscitative efforts at the time of cardiopulmonary arrest. The patient has been placed on a FULL CODE STATUS. The patient's wishes were documented in the chart and orders regarding the patient's wishes entered into the [employer] system. The "Advance Care Plan Document" was not distributed to patient to discuss with his family. Less than 30 minutes was spent in performing the above tasks and documentation of the patient's advanced care plan.
--- NOTE | 2017-05-09 22:20 | Progress Note ---
Subjective General ADVANCED CARE PLAN History of Present Illness This is a 66-year-old white male who developed a fever that started last night and today went up to 102 with chills. The source actually is blister that happened 2 weeks ago in the right foot. 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 The patient had to come to the emergency department. A discussion was undertaken with the patient regarding previous advance care arrangements/decisions. The following advanced directives were noted by the patient and discussed with me at the time of admission. ADVANCED DIRECTIVES: 1. Living well: No 2. POLST: No 3. CODE STATUS: Full Code 4. Durable [employer] [facility] care: No 5. Donor card: No The patient has expressed interest in pursuing full resuscitative efforts at the time of cardiopulmonary arrest. The patient has been placed on a FULL CODE STATUS. The patient's wishes were documented in the chart and orders regarding the patient's wishes entered into the [employer]PO[employer] system. The "Advance Care Plan Document" was not distributed to patient to discuss with his family. Less than 30 minutes was spent in performing the above tasks and documentation of the patient's advanced care plan.
--- NOTE | 2017-05-09 22:52 | DIAGNOSTIC IMAGING REPORT ---
PROCEDURE: XR CHEST 2 VIEW INDICATION: COUGH TECHNIQUE: Two views. COMPARISON: 1803 hours the same day FINDINGS: Normalization of the superior mediastinal tissues without evidence of wide mediastinum or cephalization of vasculature. Normal heart size. Diffuse coarsening of the interstitial markings may indicate chronic edema. No alveolar infiltrates, effusion, or pneumothorax. Intact osseous structures with degenerative changes and possible chronic height loss at T12. IMPRESSION: 1. Normalization of mediastinal contour compared to the prior study. 2. Coarsening of the interstitium may suggest chronic edema. Correlate clinically. Otherwise, no signs of acute CHF.
[2017-05-09 23:10] VITALS: BP 114/54
[2017-05-10] VITALS (23 sets, daily range): BP systolic 99–143; BP diastolic 43–83
--- NOTE | 2017-05-10 06:28 | Progress Note ---
Subjective General This is a 66-year-old white male who developed a fever that started last night and today went up to 102 with chills. The source actually is blister that happened 2 weeks ago in the right foot. 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 The patient had to come to the emergency department. Still has pain in right foot but controlled had fever and chills last night, no palpitations, no chest pain, no dyspnea but had dizziness after getting dilausdid Review of system: Constitutional positive for fever and chills Cardiac system: Negative for palpitation no chest pain nor dyspnea MKS: Positive for pain in right foot Physical Exam Vital Signs / I&Os Vital Signs Date Time Temp Pulse Resp B/P Pulse O2 O2 Flow FiO2 Ox Delivery Rate 05/10 0517 102.6 114 22 121/61 96 Nasal 2.0 Cannula 05/10 0410 107 22 125/52 98 Nasal 2.0 Cannula 05/10 0325 99.9 05/10 0314 109 20 115/48 98 Nasal 2.0 Cannula 05/10 0200 99.0 107 20 117/50 95 Nasal 2.0 Cannula 05/10 0059 100.2 104 20 120/46 97 Nasal 2.0 Cannula 05/10 0010 111 18 127/54 93 Nasal 2.0 Cannula 05/10 0001 2.0 05/09 2310 99.7 110 18 114/54 93 Nasal 2.0 Cannula 05/09 2211 120 16 107/57 92 Nasal 2.0 Cannula 05/09 2200 Nasal 2.0 Cannula 05/09 2132 99.9 125 28 117/38 97 Nasal 2.0 Cannula I&O 05/10 0000 05/09 1600 05/09 0800 Intake Total Output Total Balance General Appearance No acute distress Lungs Clear to auscultation Neck Supple Cardiovascular Regular rate and rhythm, Normal S1 and S2, No murmurs, gallops, rubs Abdomen Normal bowel sounds, Soft, No tenderness Extremities right foot ulcer dressed, multiple toe ampuations in both feet Skin No Rashes Psych/Mental Status Mental status normal LAB Results Laboratory Tests 05/10 05/10 05/10 05/10 05/09 0340 0340 0340 0340 1935 Chemistry Plasma Sodium (136 - 145 mmol/L) 139 Plasma Potassium (3.5 - 5.1 mmol/L) 4.3 Plasma Chloride (98 - 107 mmol/L) 103 CO2 (Enzymatic) (21 - 32 mmol/L) 26 BUN (7 - 18 mg/dL) 23 Creatinine (0.6 - 1.3 mg/dL) 1.4 Est GFR ( Amer) (mL/min) >60 Est GFR (Non-Af Amer) (mL/min) 53.56 Glucose (70 - 110 mg/dL) 151 Hemoglobin A1c % (4.5 - 6.2 %) 8.3 Plasma Calcium (8.5 - 10.1 mg/dL) 8.9 Plasma Magnesium (1.8 - 2.4 mg/dL) 1.6 Troponin (0.00 - 1.5 ng/mL) <0.05 <0.05 TSH 3rd Generation (0.30 - 3.74 uIU/mL) 1.990 Coagulation INR (0.8 - 1.2) 2.9 Hematology WBC (4.5 - 11.5 K/uL) 14.0 RBC (4.50 - 5.90 M/uL) 3.62 Hgb (13.5 - 17.5 gm/dL) 10.2 Hct (41.0 - 53.0 %) 31.0 MCV (80 - 100 fL) 85 MCH (26 - 34 pg) 28 RDW (11.6 - 14.8 %) 14.4 Neut % (Auto) (50 - 75 %) 71.4 Lymph % (Auto) (25 - 40 %) 11.2 [place] % (Auto) (3 - 14 %) 16.6 Eos % (Auto) (0 - 4 %) 0.5 Baso % (Auto) (0 - 2 %) 0.3 Plt Count, EDTA (150 - 400 K/uL) 211 PUBS MCHC (31 - 37 g/dL) 33 Toxicology Digoxin (0.9 - 2.0 ng/mL) 0.2 05/09 05/09 05/09 1715 1715 1715 Chemistry Plasma Sodium (136 - 145 mmol/L) 137 Plasma Potassium (3.5 - 5.1 mmol/L) 4.4 Plasma Chloride (98 - 107 mmol/L) 101 CO2 (Enzymatic) (21 - 32 mmol/L) 26 BUN (7 - 18 mg/dL) 20 Creatinine (0.6 - 1.3 mg/dL) 1.3 Est GFR ( Amer) (mL/min) >60 Est GFR (Non-Af Amer) (mL/min) 58.35 Glucose (70 - 110 mg/dL) 288 Lactic Acid (0.4 - 2.0 mmol/L) 1.7 Plasma Calcium (8.5 - 10.1 mg/dL) 9.4 Total Bilirubin (0.0 - 1.0 mg/dL) 1.1 AST (15 - 37 U/L) 15 ALT (12 - 78 U/L) 21 Alkaline Phosphatase (46 - 116 U/L) 86 Total Protein (6.4 - 8.2 g/dL) 7.8 Albumin (3.3 - 5.0 g/dL) 2.7 Procalcitonin (0 - 0.5 ng/mL) <0.5 Coagulation INR (0.8 - 1.2) 2.5 APTT (24 - 34 SECONDS) 67 Hematology WBC (4.5 - 11.5 K/uL) 14.6 RBC (4.50 - 5.90 M/uL) 3.88 Hgb (13.5 - 17.5 gm/dL) 11.2 Hct (41.0 - 53.0 %) 32.9 MCV (80 - 100 fL) 85 MCH (26 - 34 pg) 29 RDW (11.6 - 14.8 %) 14.3 Neut % (Auto) (50 - 75 %) 79.7 Lymph % (Auto) (25 - 40 %) 7.4 [place] % (Auto) (3 - 14 %) 12.9 Eos % (Auto) (0 - 4 %) 0 Baso % (Auto) (0 - 2 %) 0 Plt Count, EDTA (150 - 400 K/uL) 238 PUBS MCHC (31 - 37 g/dL) 34 Microbiology Date/Time Procedure - Status Source Growth 05/09 213 MRSA Screen - RECD NASAL 05/09 1929 Superficial Wound Culture - COLB FOOT 05/09 1929 Gram Stain - COLB FOOT 05/09 1929 Blood Culture - COLB BLOOD 05/09 1929 Blood Culture - COLB BLOOD 05/09 1735 Deep Wound Culture - RES FOOT 05/09 1735 Deep Wound Culture - RES FOOT 05/09 173 Gram Stain - RES FOOT 05/09 1720 Blood Culture - RECD BLOOD 05/09 1715 Blood Culture - RECD BLOOD Assessment and Plan Problem List 1. Right foot infection Plan continue Vanco and Zosyn, IV hydration, will notify Homeopathic Doctor to see pt he was consulted through ER, will put Foly in 2. Atrial fibrillation with rapid ventricular response Plan will add oral diltiazam, monitor INR, continue diltiazem IV 3. Diabetes type 2, uncontrolled Plan relatively controlled continue current meds, 4. Charcot's joint, unspecified site Plan chronic 5. PAD (peripheral artery disease) Plan had bypass surgery
[2017-05-11] VITALS (13 sets, daily range): BP systolic 109–152; BP diastolic 44–81
--- NOTE | 2017-05-11 07:06 | Progress Note ---
Subjective General This is a 66-year-old white male who developed a fever that started last night and today went up to 102 with chills. The source actually is blister that happened 2 weeks ago in the right foot. The patient saw his sales technician home theater and was put on cephalexin and had debridement done, but the pain, swelling, and redness increased along with the secretions and worsened. The patient had to come to the emergency department. Pain in right foot controlled no fever or chills, no vomiting but had nausea last nigth, no dyspnea no cp no cough Review of system: Constitutional: Negative for fever chills GI: Positive for nausea negative for vomiting Respiratory: Negative for dyspnea chest pain or cough Physical Exam Vital Signs / I&Os Vital Signs Date Time Temp Pulse Resp B/P Pulse O2 O2 Flow FiO2 Ox Delivery Rate 05/11 0700 98.1 102 20 122/49 96 Nasal 2.0 Cannula 05/11 0556 98.2 101 123/44 96 Nasal 2.0 Cannula 05/11 0512 104 24 143/68 94 Nasal 2.0 Cannula 05/11 0410 98.4 05/11 0410 113 24 121/63 95 Nasal 2.0 Cannula / 0310 113 22 137/62 92 Nasal 2.0 Cannula /11 0215 99.7 119 20 148/49 93 Nasal 2.0 Cannula / 0110 121 139/53 96 Nasal 2.0 Cannula /11 0010 101.5 106 22 148/64 96 Nasal 2.0 Cannula / 2305 99.5 102 22 143/45 96 Nasal 2.0 Cannula /10 2205 99.1 115 20 134/58 99 Nasal 2.0 Cannula /10 2101 106 20 131/51 95 Nasal 2.0 Cannula /10 2018 114 20 141/83 91 Room Air 05/10 2000 Nasal 2.0 Cannula /10 1941 2.0 /10 1904 99.9 103 20 126/71 96 Nasal 2.0 Cannula 06/10 1800 106 16 127/59 96 Nasal 2.0 Cannula 06/10 1700 107 16 119/54 99 Nasal 2.0 Cannula 06/10 1605 98.1 95 20 116/65 97 Nasal 2.0 Cannula 06/10 1455 92 06/10 1447 98.1 89 20 125/72 99 Nasal 2.0 Cannula 06/10 1337 105 20 108/58 97 Nasal 2.0 Cannula 05/10 1200 93 21 124/43 95 Nasal 2.0 Cannula 05/10 1100 94 20 105/63 100 Nasal 2.0 Cannula 05/10 1034 98.1 93 19 116/62 100 Nasal 2.0 Cannula 05/10 0900 99/57 05/10 0843 100 05/10 0826 118 21 128/66 97 Nasal 2.0 Cannula 05/10 0745 Nasal 2.0 Cannula 05/10 0732 2.0 05/10 0714 105 21 108/56 95 Nasal 2.0 Cannula I&O 05/11 0000 05/10 1600 05/10 0800 Intake Total 2215 600 2323 Output Total 400 250 500 Balance 2683 044 2522 General Appearance No acute distress Lungs Clear to auscultation Neck Supple Cardiovascular Regular rate and rhythm, Normal S1 and S2, No murmurs, gallops, rubs Abdomen Normal bowel sounds, Soft, No tenderness Extremities No edema, multiple toe ampuation, right foot surgical dressing on Skin No Rashes Psych/Mental Status Mental status normal LAB Results Laboratory Tests 05/11 05/11 05/10 0531 0400 1132 Chemistry Plasma Sodium (136 - 145 mmol/L) 139 Plasma Potassium (3.5 - 5.1 mmol/L) 4.2 Plasma Chloride (98 - 107 mmol/L) 104 CO2 (Enzymatic) (21 - 32 mmol/L) 24 BUN (7 - 18 mg/dL) 25 Creatinine (0.6 - 1.3 mg/dL) 1.3 Est GFR ( Amer) (mL/min) >60 Est GFR (Non-Af Amer) (mL/min) 58.35 Glucose (70 - 110 mg/dL) 117 Plasma Calcium (8.5 - 10.1 mg/dL) 8.8 Plasma Magnesium (1.8 - 2.4 mg/dL) 2.1 Troponin (0.00 - 1.5 ng/mL) <0.05 Hematology WBC (4.5 - 11.5 K/uL) 10.2 RBC (4.50 - 5.90 M/uL) 3.19 Hgb (13.5 - 17.5 gm/dL) 8.9 Hct (41.0 - 53.0 %) 27.3 MCV (80 - 100 fL) 85 MCH (26 - 34 pg) 28 RDW (11.6 - 14.8 %) 14.8 Neut % (Auto) (50 - 75 %) 69.4 Lymph % (Auto) (25 - 40 %) 14.7 [place] % (Auto) (3 - 14 %) 14.2 Eos % (Auto) (0 - 4 %) 1.4 Baso % (Auto) (0 - 2 %) 0.3 Plt Count, EDTA (150 - 400 K/uL) 211 PUBS MCHC (31 - 37 g/dL) 33 Toxicology Vancomycin Trough (10.0 - 20.0 ug/mL) 13.0 Assessment and Plan Problem List 1. Right foot infection Plan continue Vancomysin and Zosyn, Gram + coccies in Blood is pending for sensitivity, , staph aureous from wound 2. Atrial fibrillation Plan off Diltiazam drip, check INR, continue oral diltiazem 3. Diabetes Plan controlled continue current meds 4. PAD (peripheral artery disease) Plan stable, had bypass surgery
--- NOTE | 2017-05-11 21:57 | DIAGNOSTIC IMAGING REPORT ---
PROCEDURE: XR CHEST 1 VIEW INDICATION: Hypoxia. Congestive heart failure. TECHNIQUE: Portable AP view (1900 hours). COMPARISON: Compared to chest x-ray and 05/09/2017. FINDINGS: Interval development of mild parenchymal changes right lung base, mild cardiomegaly with pulmonary vascular congestion and interstitial changes. Mediastinum is normal. Thorax is unchanged. IMPRESSION: 1. Development of mild parenchymal changes right lung base compatible with pneumonia (e.g., aspiration, bacterial, Mycoplasma). 2. Development of mild congestive heart failure with interstitial edema. 3. Findings discussed with Dr. Brennan.
[2017-05-12 02:42] VITALS: BP 133/59
[2017-05-12 06:20] VITALS: BP 145/45
[2017-05-12 10:24] VITALS: BP 124/85
[2017-05-12] MEDS ORDERED: DILTIAZEM PO (11:04)
[2017-05-12] MEDS ORDERED: VICODIN EQUIVAL1 TAB PO (11:04)
[2017-05-12] MEDS ORDERED: CARDIZEM C2 PO (11:04)
[2017-05-12] MEDS ORDERED: VANCOMYCIN 50 MG/ML IV (11:04)
[2017-05-12] MEDS ORDERED: [UNRECOGNIZED DRUG - OTHER] PO (11:04)
[2017-05-12] MEDS ORDERED: VANCOMYCIN IV (11:29)
--- NOTE | 2017-05-12 11:43 | DISCHARGE SUMMARY ---
ADMIT DATE: 05/09/2017 DISCHARGE DATE: 05/12/2017 DISCHARGE DIAGNOSES: 1. Right foot infected ulceration 2. Atrial fibrillation 3. Diabetes mellitus 4. Peripheral arterial disease BRIEF HISTORY: This is a 66-year-old white male who developed a fever, starting the night before the admission. He was admitted on 05/09/2017. The temperature went up to 102. The patient also had chills. He also had a blister in his foot, which just started 2 weeks ago, in the right foot. The patient was seeing a er medical technician and was put on cephalexin and was going through debridement, but pain and swelling and redness progressively became worse, with increasing secretions. The patient had to come to the hospital. HOSPITAL COURSE: The patient was admitted to the CCU because the patient developed atrial fibrillation with rapid ventricular response in the ED and had to be put on a Cardizem drip. So he was admitted to CCU, was started on Zosyn and vancomycin and a Cardizem drip. The patient improved during the hospital course. Dr. Pritchett saw the patient and did some debridement and planned to do vacuum treatment on that wound. In discussion with Dr. Pritchett, he would like to have antibiotic continued for at least 2 weeks or more, up to 3 weeks. The patient's cultures from the blood and wound grew MRSA, which is sensitive to vancomycin. The patient was able to wean off from the Cardizem drip and was put on long- acting Cardizem oral. The patient was doing okay, but last night the patient had 1 episode of shortness of breath. Workup showed the patient might have fluid overload, and responded well to IV Lasix. Right now he is doing really fine. No shortness of breath. No chest pain. Some chills but no fever. No nausea, no vomiting. Pain in the right foot is controlled, and shortness of breath resolved completely. PHYSICAL EXAMINATION: VITAL SIGNS: Temperature is 98.1, pulse is 96, respirations 20, blood pressure 124/85, oxygen 97% on 3 L. LUNGS: Clear to auscultation. No rhonchi or wheezing or crackles. HEART: Regular S1 and S2. No murmur. No S3 was heard. ABDOMEN: Soft, nontender. Bowel sounds are positive. EXTREMITIES: The patient has a surgical dressing in the right foot. No edema. LAB/IMAGING: White blood count is 8.3, hemoglobin is 9 and stable, hematocrit is 27.4, and platelet count is 224. Sodium is 139, potassium 3.7, chloride is 104, CO2 is 25, BUN is 23, creatinine 1.3, glucose 116, calcium is 8.9. INR today is 2.7. The patient is on Coumadin for atrial fibrillation. DISCHARGE INSTRUCTIONS/MEDICATIONS: The patient will continue outpatient medication, which would Humulin 70/30, 75 units in the morning and 55 units at bedtime. Meclizine 25 mg every 6 hours as needed. Meloxicam 15 mg daily. The patient also will be on vancomycin, pharmacy per dose, for 2 more weeks. Diltiazem CD 240 mg daily. Tamsulosin 0.4 mg daily. Nortriptyline 50 mg at bedtime. Lipitor 20 mg daily. Warfarin 5 mg daily. Digoxin will continue 125 mcg daily, even though the level was low, but because we added diltiazem to the medical regime, we will continue the digoxin 1.25. Metformin 1000 mg twice a day. Gabapentin 200 mg twice a day. Atenolol 25 mg daily. Aspirin 325 mg daily. We will stop the Zosyn, since there has been no other bacteria that grew up in the blood and the wound. The patient will follow up with his primary care physician as an outpatient within 1 week, and also needs to follow up with the er medical technician, Dr. Pritchett, as outlined per his instruction. I will also put the patient on Vicodin 5/325 three times a day as needed for the pain management.
--- NOTE | 2017-05-12 12:34 | DIAGNOSTIC IMAGING REPORT ---
REFERRING PHYSICIAN/PROVIDER: Se Fox MD CONSULTING HUMAN GEOGRAPHY FACULTY MEMBER: Gareth Astudillo MD PROCEDURE: M-mode 2D echocardiography with spectral and color flow Doppler TECHNICAL QUALITY: Adequate INDICATION: afib RHYTHM DURING PROCEDURE: Atrial fibrillation with rapid ventricular response. INTERPRETATIONS: LEFT VENTRICLE: The left ventricular chamber size is within normal limits. The left ventricular wall thickness is grossly normal. The left ventricular ejection fraction is normal with an estimated ejection fraction of 55-60%. There are no gross focal wall motion abnormalities. Diastolic function could not be assessed because of atrial fibrillation. RIGHT VENTRICLE: RV chamber size is mildly enlarged with borderline reduced RV systolic dysfunction. ATRIA: The left atrial chamber size is severely enlarged with a left atrial measurement of 60.6 ml per meter squared. The right atrial chamber size is not well visualized. But appears to be at least moderately enlarged. The interatrial septum is grossly intact. MITRAL VALVE: There is at least moderate mitral annular calcification. There is mild mitral regurgitation. The leaflets appear to be borderline thickened. AORTIC VALVE: The aortic valve is trileaflet. There is mild to moderate aortic sclerosis. There is no evidence of significant aortic stenosis. There is trace aortic regurgitation. The peak aortic velocity is 149 centimeters per second. The mean gradient as 8.8 mmHg. TRICUSPID VALVE: The tricuspid leaflets appear to be thin and pliable. There is mild tricuspid regurgitation. The right ventricular systolic pressure is at least 43 millimeters of mercury plus the right atrial pressure which cannot be assessed on this examination. PULMONIC VALVE: The pulmonic valve is not well visualized and there is trace pulmonic regurgitation. GREAT VESSELS: The aorta root is borderline enlarged measuring at 3.95 cm. The ascending aorta is mildly enlarged at 3.7 cm. The aortic arch is at the upper limits of normal at 3.3 cm. The IVC was not well visualized. PERICARDIUM: There is no gross evidence of significant pericardial effusion. IMPRESSION: 1. Normal left ventricular systolic function with borderline reduced RV systolic function. RV systolic pressure is at least 43 mmHg plus the right atrial pressure which cannot be assessed on this examination. 2. Atrial fibrillation with rapid ventricular response. 3. Left atrial chamber size is severely enlarged and right atrial chamber size was not well visualized. 4. There is mild to moderate aortic sclerosis without significant stenosis. There is mild tricuspid regurgitation and mild mitral regurgitation. 5. The ascending aorta is mildly enlarged at 3.7 cm.
--- NOTE | 2017-05-12 15:02 | DIAGNOSTIC IMAGING REPORT ---
PROCEDURE: XR CHEST 1 VIEW INDICATION: Piccline placement TECHNIQUE: Single view chest. 1243 hours. COMPARISON: 05/11/2017 FINDINGS: Mild cardiomegaly, new right-sided PICC line is present. The tip is in within the right atrium and should be withdrawn about 2.5 cm. The heart size is mildly enlarged, stable. There is mild central venous congestion and diffuse coarsening of the interstitial markings. Resolution of parenchymal change at the right lung base. No significant effusions or pneumothorax. Intact osseous structures. IMPRESSION: 1. Right-sided PICC line in position, to be withdrawn about 2.5 cm, discussed with Nereyda from PICC line team. 2. Mild cardiomegaly with mild central vascular and interstitial edema. 3. Resolution of right lung base pneumonia.
[2017-05-12 16:26] VITALS: BP 127/75
--- NOTE | 2017-05-12 17:00 | DIAGNOSTIC IMAGING REPORT ---
PROCEDURE: US VENOUS - BILATERAL EXT INDICATION: POOR PERFUSION TECHNIQUE: Duplex sonography of the deep venous system in both lower extremities was performed. Compression and augmentation techniques were used. COMPARISON: None. FINDINGS: Each interrogated segment of deep vein from the common femoral vein into the calf veins demonstrates normal compressibility, augmentation and/or color Doppler flow without filling defect. No evidence of significant soft-tissue edema, soft-tissue mass or cyst. The right greater saphenous vein and the right and left superficial femoral veins are competent. IMPRESSION: 1. No deep venous thrombosis in either lower extremity. 2. Negative for deep system reflux. 3. Left greater saphenous vein absent, harvested for graft 4. Negative for right greater saphenous vein reflux
--- NOTE | 2017-05-12 17:31 | DIAGNOSTIC IMAGING REPORT ---
PROCEDURE: US ART LOWER EXT DOPPLER-BILAT INDICATION: Poor distal perfusion. History of bilateral lower extremity bypass (reportedly right occluded). TECHNIQUE: Color Doppler duplex imaging of the lower extremities was performed. ABIs could not be obtained (reported sensitivity). COMPARISON: None. FINDINGS: RIGHT LOWER EXTREMITY: VESSELS: There are moderate to marked calcified atheromatous changes right lower extremity. RIGHT LOWER EXTREMITY PEAK SYSTOLIC VELOCITIES: External iliac: Triphasic 134 cm/second. Common femoral artery: Triphasic 92 cm/second. Profunda femoral artery: Biphasic 88 cm/second. Proximal superficial femoral artery: Triphasic 110 cm/second. Mid superficial femoral artery: Triphasic 69 cm/second. Distal superficial femoral artery: Triphasic 81 cm/second. Popliteal artery: Monophasic 62 cm/second. Proximal posterior tibial artery: Monophasic 54 cm/second. Proximal anterior tibial artery: N/A Peroneal artery: N/A Distal posterior tibial artery: Monophasic 82 cm/second. Dorsalis pedis artery: Monophasic 44 cm/second. A right lower extremity bypass graft is not visualized. LEFT LOWER EXTREMITY: VESSELS: Moderate to marked calcified atheromatous changes. LEFT LOWER EXTREMITY PEAK SYSTOLIC VELOCITIES: External iliac: Triphasic 131 cm/second. Common femoral artery: Triphasic 105 cm/second. Profunda femoral artery: Biphasic 103 cm/second. Proximal superficial femoral artery: Triphasic 105 cm/second. Mid superficial femoral artery: Triphasic 50 cm/second. Distal superficial femoral artery: N/A cm/second. Popliteal artery: Triphasic 49 cm/second. Proximal posterior tibial artery: Biphasic 34 cm/second. Proximal anterior tibial artery: Triphasic 70 cm/second. Peroneal artery: N/A Distal posterior tibial artery: Occluded Dorsalis pedis artery: Triphasic 73 cm/second. There is a patent distal superficial femoral artery to distal anterior tibial artery bypass graft. Graft velocities are as follows: (proximal graft triphasic 66 cm second, mid graft triphasic 121 cm second, distal graft triphasic 58 cm second, distal anastomoses biphasic 221 cm second) IMPRESSION: 1. Marked calcified atheromatous changes of the lower extremity arterial vascular system. 2. Findings suggest evidence of arterial insufficiency of the right lower extremity with monophasic flow in the popliteal artery and trifurcation vessels. 3. Right lower extremity bypass graft not visualized (presumed occluded). 4. Findings suggest evidence of arterial insufficiency of the left lower extremity with occlusion of the left posterior tibial artery. However, there is a patent left superficial femoral to distal anterior tibial artery bypass graft with triphasic flow (even though there is a 50-99% stenosis of the distal anastomoses ).
[2017-05-12 20:31] VITALS: BP 128/42
[2017-05-13 00:54] VITALS: BP 123/48
[2017-05-13 04:26] VITALS: BP 128/58
[2017-05-13 06:26] VITALS: BP 133/44
--- NOTE | 2017-05-13 06:36 | Progress Note ---
Subjective General doing fine, pain in right foot controlled, no fever or chills, no nausea or vomiting no chest pain, no dyspnea, ready to go, Physical Exam Vital Signs / I&Os Vital Signs Date Time Temp Pulse Resp B/P Pulse O2 O2 Flow FiO2 Ox Delivery Rate 05/13 0626 98.1 80 20 133/44 99 Nasal 2.0 Cannula 05/13 0426 97.7 85 24 128/58 100 Nasal 2.0 Cannula 05/13 0131 2.0 05/13 0054 98.2 85 22 123/48 96 Room Air 05/12 2102 Room Air 05/12 2031 98.2 86 20 128/42 95 Room Air 05/12 1626 98.2 90 26 127/75 97 05/12 1318 106 05/12 1024 98.1 96 20 124/85 97 Nasal 3.0 Cannula 05/12 0839 116 05/12 0808 3.0 05/12 0730 Nasal 3.0 Cannula I&O 05/13 0000 05/12 1600 05/12 0800 Intake Total 2120 1874 1556 Output Total 925 1400 3600 Balance 1195 474 -2044 General Appearance No acute distress Lungs Clear to auscultation Neck Supple Cardiovascular Regular rate and rhythm, Normal S1 and S2, No murmurs, gallops, rubs Abdomen Normal bowel sounds, Soft, No tenderness Extremities No edema Skin No Rashes Psych/Mental Status Mental status normal Assessment and Plan Problem List 1. Right foot infection Plan contineu IV vanco for at least 2 more weeks, ready to be discharged today 2. Atrial fibrillation Plan rate controlled by cardizem CD oral 3. Diabetes Plan controlled continue current meds 4. PAD (peripheral artery disease) Plan stable continue current management
== END 2017-05-13 13:05 | DRG 623 ==
LOC: ED SRH 16:46 → TRANS SRH 18:28 → CC SRH 21:10
PROVIDERS: ADMIT Emergency Medicine
PROC: 0JBQ0ZZ Excision of Right Foot Subcutaneous Tissue and Fascia, Open Approach (ICD-10-PCS; principal; 2017-05-10)
DX: E11.621 Type 2 diabetes mellitus with foot ulcer (principal); L97.411 Non-pressure chronic ulcer of right heel and midfoot limited to breakdown of skin; B95.62 Methicillin resistant Staphylococcus aureus infection as the cause of diseases classified elsewhere; S90.821A Blister (nonthermal), right foot, initial encounter; X58.XXXA Exposure to other specified factors, initial encounter; E11.610 Type 2 diabetes mellitus with diabetic neuropathic arthropathy; E11.51 Type 2 diabetes mellitus with diabetic peripheral angiopathy without gangrene; I48.91 Unspecified atrial fibrillation; Z89.422 Acquired absence of other left toe(s); Z89.421 Acquired absence of other right toe(s); Z79.4 Long term (current) use of insulin

== ENCOUNTER 2017-06-09 18:12 | Outpatient (CLI) | payer OTHER ==
[~2017-06-09 18:12] MED LIST changes: +CARDIZEM C2 PO; +DILTIAZEM PO; +FLOMAX0.4 MG PO; +GABAPENTIN100 MG PO; +TRIAMCINOLONE A0.11 TOP; +VANCOMYCIN 50 MG/ML IV; +VANCOMYCIN IV; +VICODIN EQUIVAL1 TAB PO; +[UNRECOGNIZED DRUG - OTHER] PO
--- NOTE | 2017-06-09 18:30 | NUR ---
JUAN piccline flushed with SL. Flushed sluggish. Unable to draw blood. Cathflo Activase administered into JUAN piccline. Patient watching TV. No complaints at this time. Will continue to monitor.
--- NOTE | 2017-06-09 19:05 | NUR ---
JUAN piccline blood return noted but sluggish and slow to draw. Piccline JUAN flushed with 20 ML saline and then blood return noted. Continued to be slow with blood return. Dressing changed to check for kinks. No kinks noted. Flushed with 40 ML saline. Piccline line flushes well. Now able to get blood return. Patient instructed to flush line frequently to keep line open. No complaints at this time. Pleasant and cooperative with care. Will continue to monitor.
== END 2017-06-09 20:30 | disposition home or self-care (01) ==
LOC: CC SRH 18:12 → SDP SRH 18:12 → CC SRH 18:15 → SDP SRH 20:30
PROC: 3C1ZX8Z Irrigation of Indwelling Device using Irrigating Substance, External Approach (ICD-10-PCS; principal; 2017-06-09)
DX: T82.594A Other mechanical complication of infusion catheter, initial encounter (principal)